=== PATIENT | female | born 1970 | race American Indian/Alaskan Native ===

== ENCOUNTER 2020-02-06 18:42 | Emergency (ER) | payer SELFPAY ==
[2020-02-06 18:55] VITALS: BP 126/73
--- NOTE | 2020-02-06 19:24 | XRay Report ---
CHEST 2 VIEWS INDICATION / CLINICAL INFORMATION: productive cough. COMPARISON: None available. FINDINGS: SUPPORT DEVICES: None. HEART / MEDIASTINUM: No significant abnormality. LUNGS / PLEURA: No significant pulmonary or pleural abnormality. No pneumothorax. ADDITIONAL FINDINGS: No significant additional findings. IMPRESSION: No significant abnormality Signer Name: Lee Wilcox MD FACR Signed: 02/06/2020 7:19 PM Workstation Name: [id number]
[2020-02-06] MEDS ORDERED: IPRATROPIUM 0.02% NEBU 2.5 ML IH ONE (19:57)
[2020-02-06] MEDS ORDERED: dexAMETHasone 20 MG/5 ML VIAL IM ONE (19:57)
[2020-02-06] MEDS ORDERED: ALBUTEROL 2.5 MG/3 ML NEBU IH ONE (19:57)
--- NOTE | 2020-02-06 19:58 | Event Note ---
ED Screening Note ED Screening Note: Productive cough with mucus production that began 5 days ago Has associated nausea, diarrhea, subjective fever, chills, wheezing No vomiting, chest pain, shortness of breath, abd pain current every day smoker has had bronchitis approximately 3 years ago +wheezing/rhonchi on exam appears to be acute on chronic bronchitis This initial assessment/diagnostic orders/clinical plan/treatment(s) is/are subject to change based on patients health status, clinical progression and re- assessment by fellow clinical providers in the ED. Further treatment and workup at subsequent clinical providers discretion. Patient/guardian urged not to elope from the ED as their condition may be serious if not clinically assessed and managed. Initial orders include: cxr neb tx steroids
--- NOTE | 2020-02-06 20:36 | Emergency Department Report ---
- General Chief Complaint: Upper Respiratory Infection Stated Complaint: COUGH, SWEATS, CHILLS, MUSCLE ACHE Time Seen by Provider: 02/06/20 19:53 Source: patient Mode of arrival: Ambulatory Limitations: No Limitations - History of Present Illness Initial Comments: Patient is a 49-year-old -[place] female with a history of chronic bronchitis and heavy tobacco abuse who presents to the ED with complaint of acute onset persistent nasal and sinus congestion, persistent frontal sinus pressure, persistent dry cough with wheezing and shortness of breath for the last 5 days. Patient states that the symptoms especially got worse in the last 2 days. Patient states that she has been using uzzx-esp-oeyefug medications with no relief. Patient denies fever, chills, nausea, vomiting, dizziness, syncope, chest pain, abdominal pain, sore throat, diarrhea, dysuria, urinary frequency and urgency, neck pain or change in vision and palpitations. MD Complaint: fever, cough, rhinorrhea, nasal congestion, sinus pain, other (Nausea, diarrhea and chills with subjective fever) -: Sudden, days(s) (5) Severity: moderate Severity scale (0 -10): 6 Quality: dull, aching Consistency: intermittent Improves With: nothing Worsens With: nothing Associated Symptoms: denies other symptoms, rhinorrhea, nasal congestion, cough, shortness of breath. denies: fever, chills, myalgias, diaphoresis, headache, sore throat, stiff neck, chest pain, abdominal pain, nausea, vomiting, diarrhea, dysuria, rash, confusion, right sweats, weight loss, epistaxis, hoarseness, ear pain, other Treatments Prior to Arrival: none - Related Data Previous Rx's Medication Instructions Recorded Last Taken Type Albuterol Sulfate [Proventil Hfa] 1 - 2 puff IH Q6H PRN #1 hfa.aer.ad 02/06/20 Unknown Rx Benzonatate [Tessalon Perles] 100 mg PO Q8HR #30 capsule 02/06/20 Unknown Rx Cetirizine HCl [Zyrtec 10mg tab] 10 mg PO DAILY #30 tablet 02/06/20 Unknown Rx Doxycycline Hyclate 100 mg PO Q12H #20 tablet.dr 02/06/20 Unknown Rx Ibuprofen [Motrin] 600 mg PO Q8H PRN #24 tablet 02/06/20 Unknown Rx methylPREDNISolone [Medrol 4MG 4 mg PO DAILY #21 tab.ds.pk 02/06/20 Unknown Rx DOSEPAK (21 tabs)] Allergies Allergy/AdvReac Type Severity Reaction Status Date / Time No Known Allergies Allergy Unverified 02/06/20 18:51 ED Review of Systems ROS: Stated complaint: COUGH, SWEATS, CHILLS, MUSCLE ACHE Other details as noted in HPI Constitutional: denies: chills, fever Eyes: denies: eye pain, eye discharge, vision change ENT: congestion. denies: ear pain, throat pain Respiratory: cough, shortness of breath, wheezing Cardiovascular: denies: chest pain, palpitations, dyspnea on exertion, edema, syncope, other Endocrine: no symptoms reported Gastrointestinal: denies: abdominal pain, nausea, diarrhea Genitourinary: denies: urgency, dysuria, discharge Musculoskeletal: denies: back pain, joint swelling, arthralgia Skin: denies: rash, lesions Neurological: denies: headache, weakness, paresthesias Psychiatric: denies: anxiety, depression Hematological/Lymphatic: denies: easy bleeding, easy bruising ED Past Medical Hx - Past Medical History Previous Medical History?: No - Surgical History Past Surgical History?: Yes Additional Surgical History: 4 c-sections, breast - Social History Smoking Status: Current Every Day Smoker Substance Use Type: None - Medications Home Medications: Home Medications Medication Instructions Recorded Confirmed Last Taken Type Albuterol Sulfate [Proventil Hfa] 1 - 2 puff IH Q6H PRN #1 hfa.aer.ad 02/06/20 Unknown Rx Benzonatate [Tessalon Perles] 100 mg PO Q8HR #30 capsule 02/06/20 Unknown Rx Cetirizine HCl [Zyrtec 10mg tab] 10 mg PO DAILY #30 tablet 02/06/20 Unknown Rx Doxycycline Hyclate 100 mg PO Q12H #20 tablet.dr 02/06/20 Unknown Rx Ibuprofen [Motrin] 600 mg PO Q8H PRN #24 tablet 02/06/20 Unknown Rx methylPREDNISolone [Medrol 4MG 4 mg PO DAILY #21 tab.ds.pk 02/06/20 Unknown Rx DOSEPAK (21 tabs)] ED Physical Exam - General Limitations: No Limitations General appearance: alert, in no apparent distress - Head Head exam: Present: atraumatic, normocephalic, normal inspection - Eye Eye exam: Present: normal appearance, PERRL, EOMI Pupils: Present: normal accommodation - ENT ENT exam: Present: normal orophraynx, mucous membranes moist, TM's normal bilaterally, normal external ear exam, other (Grossly congested nasal passages) - Neck Neck exam: Present: normal inspection, full ROM. Absent: tenderness, meningismus, lymphadenopathy, thyromegaly - Respiratory Respiratory exam: Present: normal lung sounds bilaterally. Absent: respiratory distress, wheezes, rales, rhonchi, stridor, chest wall tenderness, accessory muscle use, decreased breath sounds, prolonged expiratory - Cardiovascular Cardiovascular Exam: Present: regular rate, normal rhythm, normal heart sounds. Absent: systolic murmur, diastolic murmur, rubs, gallop - GI/Abdominal GI/Abdominal exam: Present: soft, normal bowel sounds. Absent: distended, tenderness, guarding, rebound, hyperactive bowel sounds - Extremities Exam Extremities exam: Present: normal inspection - Back Exam Back exam: Present: normal inspection - Neurological Exam Neurological exam: Present: alert, oriented X3 - Psychiatric Psychiatric exam: Present: normal affect, normal mood - Skin Skin exam: Present: warm, dry, intact, normal color. Absent: rash ED Course Vital Signs 02/06/20 18:50 Temperature 98.2 F Pulse Rate 86 Respiratory 16 Rate Blood Pressure 126/73 O2 Sat by Pulse 97 Oximetry ED Medical Decision Making - Radiology Data Radiology results: report reviewed, image reviewed Findings [address] [address] XRay Report Signed Patient: LADARIUS OCONNOR MR#: [id number] [birth year] : 1970 Acct:[id number] Age/Sex: 49 / F ADM Date: 02/06/20 Loc: ED Attending Dr: Ordering Physician: ELSY VENEGAS Date of Service: 02/06/20 Procedure(s): XR chest routine 2V Accession Number(s): [id number] cc: ELSY VENEGAS Fluoro Time In Minutes: CHEST 2 VIEWS INDICATION / CLINICAL INFORMATION: productive cough. COMPARISON: None available. FINDINGS: SUPPORT DEVICES: None. HEART / MEDIASTINUM: No significant abnormality. LUNGS / PLEURA: No significant pulmonary or pleural abnormality. No pneumothorax. ADDITIONAL FINDINGS: No significant additional findings. IMPRESSION: No significant abnormality Signer Name: Lee Wilcox MD FACR Signed: 02/06/2020 7:19 PM Workstation Name: [id number] Transcribed By: MS Dictated By: Lee Wilcox MD Electronically Authenticated By: Lee Wilcox MD Signed Date/Time: 02/06/201918 DD/ 18 TD/TT: - Medical Decision Making This is a 49-year-old -[place] female with a history of chronic bronchitis and heavy tobacco abuse who presents to the ED with complaint of acute onset persistent nasal and sinus congestion, persistent frontal sinus pressure, persistent dry cough with wheezing and shortness of breath for the last 5 days. Patient states that the symptoms especially got worse in the last 2 days. Patient states that she has been using xjec-lpl-gifccst medications with no relief. In the ED, patient is alert and oriented x3 and is not in distress. Patient received DuoNeb treatment in the ED and steroids. Chest x-ray shows no acute cardiopulmonary abnormalities or pneumonitis. On reevaluation, patient wheezing resolved patient felt better and was discharged home on medications. Patient was advised to follow-up with her primary care physician in 5 to 7 days for reevaluation or return to the ED immediately if symptoms get worse. Patient was also counseled on the importance of quitting tobacco abuse to improve on her symptoms. - Differential Diagnosis Pneumonia; Bronchitis; URI; Sinusitis; Covid-19 Critical care attestation.: If time is entered above; I have spent that time in minutes in the direct care of this critically ill patient, excluding procedure time. ED Disposition Clinical Impression: Acute exacerbation of chronic bronchitis, Acute upper respiratory infection Disposition: -01 TO HOME OR SELFCARE Is pt being admited?: No Does the pt Need Aspirin: No Condition: Stable Instructions: Upper Respiratory Infection (ED), Chronic Bronchitis (ED) Additional Instructions: Chest x-ray shows no acute cardiopulmonary abnormalities or pneumonitis. Take medication with food, drink plenty of fluids and follow-up with your primary care physician in 7 to 10 days for reevaluation. Consider quitting tobacco smoking habit to improve your symptoms. Prescriptions: Doxycycline Hyclate 100 mg PO Q12H #20 tablet.dr methylPREDNISolone [Medrol 4MG DOSEPAK (21 tabs)] 4 mg PO DAILY #21 tab.ds.pk Ibuprofen [Motrin] 600 mg PO Q8H PRN #24 tablet PRN Reason: Pain Albuterol Sulfate [Proventil Hfa] 1 - 2 puff IH Q6H PRN #1 hfa.aer.ad PRN Reason: Dyspnea Benzonatate [Tessalon Perles] 100 mg PO Q8HR #30 capsule Cetirizine HCl [Zyrtec 10mg tab] 10 mg PO DAILY #30 tablet Referrals: [facility] [Provider Group] - 7-10 days Time of Disposition: 20:44 Print Language: MOHAW[place]
== END 2020-02-06 22:20 | disposition home or self-care (01) ==
LOC: ED 18:42
DX: J06.9 Acute upper respiratory infection, unspecified (principal); J20.9 Acute bronchitis, unspecified; F17.200 Nicotine dependence, unspecified, uncomplicated; Z79.899 Other long term (current) drug therapy; Z98.890 Other specified postprocedural states
CPT/HCPCS: 71046; 94640; 96372; 99283; J1100